=== PATIENT | male | born 1985 | race Two or more races ===

== ENCOUNTER 2019-04-24 18:36 | Emergency (ER) | payer OTHER ==
[~2019-04-24] VITALS: Ht 182.9 cm; Wt 99.0 kg
--- NOTE | 2019-04-24 19:14 | NUR ---
Patient presents to ER c/o runny nose, cough, body aches. Patient states it started yesterday afternoon. He has been taking cough/cold medicine. He was worried about the evans virus because he travels often. He has not flown to [place] but recently went to [place] [facility] and multiple [place] airports. Patient is in NAD. Respirations even and unlabored.
[2019-04-24] MEDS ORDERED: IBUPROFEN 800 MG TABLET ONE (19:20)
[2019-04-24] MEDS ORDERED: IBUPROFEN 800 MG TABLET PO ONE (19:30)
[2019-04-24 19:44] LABS: RAPID INFLUENZA A Negative (Negative); RAPID INFLUENZA B Negative (Negative)
[2019-04-24 20:13] VITALS: BP 129/78
== END 2019-04-24 20:53 | disposition home or self-care (01) ==
LOC: ED 20:35
DX: J10.1 Influenza due to other identified influenza virus with other respiratory manifestations (principal)
CPT/HCPCS: 71045; 87400; 99284